=== PATIENT | female | born 1935 | race African-American/Black ===

== ENCOUNTER → 2016-06-23 | Outpatient (CLI) | payer MEDICARE, OTHER ==
[~2016-06-23] MED LIST: ATORVASTATIN CA10 MG PO; CARDURA4 M1 PO; COZAAR PO; EDARBYCLOR 40-1 EACH PO; HYDROCHLOROTH12.5 MG PO; LASIX20 MG PO; MULTI-DAY VITAM1 TAB PO; NOVOLIN 70/30 V10 M1 SUBQ; PROAIR HFA8.5 GM; VITAMIN D250000 UNIT PO; ZYRTEC10 M2 PO
--- NOTE | ~2016-06-23 | CR63 ---
[facility] A Service of [facility] / [facility] RADIOLOGY TEXT RESULTS PATIENT: BEVERLY NÚÑEZ LOCATION: [facility] : 33 UNIT #: [id number] AGE: [address]: Norma Lorenz MD SEX: F ORDER DR: [id number] [facility] [address] [place], [place] [address] [id number] O MR#: [id number] Acc #: [id number] NAME: BEVERLY NÚÑEZ. : 1935 SEX: F STUDY DATE/TIME: 06/23/2016 12:37 UNIT: [facility] ROOM: STUDY DESCRIPTION: CR Chest 2 View Attending Physician: Norma Lorenz M.D. Referring Physician: Norma Lorenz M.D. Ordering Physician: Norma Lorenz M.D. Primary Care Physician: Norma Lorenz M.D. MEDICAL IMAGING REPORT This report is preliminary unless electronic signature is present EXAM Chest. DATE OF EXAM 06/23/2016 LOCATION [facility]. HISTORY 81-year-old woman with unexplained cough, past smoker. History of high blood pressure and asthma. COMPARISON None. FINDINGS AP, lateral, upright chest views demonstrate large body habitus. Heart size is normal. Hilar structures are preserved. Bilateral lungs are expanded and clear. Advanced arthropathy bilateral shoulders. IMPRESSION Large body habitus. No acute chest finding. Advanced arthropathy bilateral shoulders. Dictated by... Jad Hoffman M.D. THIS IS AN ELECTRONICALLY VERIFIED REPORT Jad Hoffman M.D. at 06/26/2016 8:16 AM GINGER/hugo [facility] A Service of [facility] & [facility] RADIOLOGY TEXT RESULTS PATIENT: BEVERLY NÚÑEZ [id number] 33 UNIT #: [id number] AGE: [address]: Norma Lorenz MD SEX: F ORDER DR: TD: 06/23/2016 16:18 JOB #: [id number] MEDICAL IMAGING REPORT Page 1 of 1 COPY
== END | disposition home or self-care (01) ==
LOC: CRAD 12:19
DX: R05 Cough (principal); M19.012 Primary osteoarthritis, left shoulder; M19.011 Primary osteoarthritis, right shoulder
CPT/HCPCS: 71020